=== PATIENT | male | born 1955 | race Caucasian/White ===

== ENCOUNTER 2016-08-22 16:48 | Emergency (ER) | payer OTHER ==
[~2016-08-22] VITALS: Ht 177.8 cm; Wt 132.7 kg
[2016-08-22 16:53] VITALS: BP 113/73; PULSE 66; RESP 16; O2SAT 98
--- NOTE | 2016-08-22 17:22 | ED.REPORT ---
HPI-Chest Pain 40 and Over Date of Service Aug 22, 2016 ED Provider: Doc,Ed MD The patient is a 61 year old male with history hypertension presents to the emergency department complaining of epigastric pain. His pain is exacerbated with eating and intermittently radiates up into his chest. Nursing Notes Stated Complaint: CHEST PAIN Chief Complaint: Chest Pain Nursing Notes Reviewed: Yes Allergies: Coded Allergies: Penicillins (Verified Allergy, Unknown, 08/22/16) General Time Seen by MD: 17:21 Chief Complaint Chest pain Hx Obtained From: Patient Arrived By: Walk-in Sudden in Onset?: No Location: : Epigastric: Substernal Quality: Burning, Painful Severity: Current: Moderate Severity: Maximum: Moderate Exacerbated by: Eating Recent Healthcare: No recent doctor visit, No recent hospitalization Past Medical History Past Medical History Hypertension Family History Noncontributory Smoking History Unknown if Ever Smoker Social History Other Social History: Local resident Ambulatory Status Independent Review of Systems Cardiovascular: Reports: Chest pain GI: Reports: Abdominal pain Complete sys rev & neg: except as marked. Physical Exam Initial Vital Signs Vital Signs (First) Date Time Temp Pulse Resp B/P Pulse Ox O2 Delivery O2 Flow Rate FiO2 08/22/16 16:53 36.1 66 16 113/73 98 Room Air Initial VS: Reviewed Interpretation & Diagnostics Lab Results Interpretation Result Diagram: 08/22/16 1718 Test 08/22/16 17:18 White Blood Count 8.5th/mm3 (3.8-10.1) Red Blood Count 4.61mil/mm3 (4.40-5.80) Hemoglobin 13.7g/dL (13.8-17.2) Hematocrit 41.4% (41.0-50.0) Mean Corpuscular Volume 89.8fL (81-100) Mean Corpuscular Hemoglobin 29.7pg (27.0-35.0) Mean Corpuscular Hemoglobin Concent 33.1% (32.0-37.0) Red Cell Distribution Width 13.7% (12.3-15.4) Platelet Count 235bil/L (150-400) Neutrophils (%) (Auto) 71.0% (40-74) Lymphocytes (%) (Auto) 16.1% (14-46) Monocytes (%) (Auto) 8.8% (4-12) Eosinophils (%) (Auto) 2.9% (0-5) Basophils (%) (Auto) 0.5% (0-3) ECG Interpretation ECG Interpretation: Normal sinus rhythm with a rate of 62 Time: 17:04 Interpreted by: ED physician Re-Eval/Medical Decision Source of Hx: Old records Counseled Regarding: Diagnosis, Lab results Discharge & Departure Discharge Condition All VS Reviewed: Yes Condition: Stable Referrals: Brad Adams MD (PCP) Scribe Attestation Portions of this note were transcribed by Laxmi Wilde. I, Dr. Gonzalez personally performed the history, physical exam and medical decision-making; I reviewed and confirmed the accuracy of the information in the transcribed note. Signed by: Ileana Goldberg, 08/22/2016 at 1800. copies to: Brad Adams MD, Timothy S DO Aug 22, 2016 17:21 Laxmi Wilde Aug 22, 2016 17:35
[2016-08-22] MEDS ORDERED: LidocaineVisc 2%:Antacid 1:1 10 mL Syringe PO ONE (17:25)
[2016-08-22 17:34] LABS: BASOPHILS % (AUTO) 0.5 % (0-3); EOSINOPHILS % (AUTO) 2.9 % (0-5); MONOCYTES % (AUTO) 8.8 % (4-12); Mean Corpuscular Hemoglobin 29.7 pg (27.0-35.0); Mean Corpuscular Volume 89.8 fL (81-100); Platelet Count 235 bil/L (150-400)
[2016-08-22 18:00] LABS: Lipase 16 U/L (13-60); TROPONIN T < 0.010 ug/L (0.0-0.011)
--- NOTE | 2016-08-22 18:03 | ED.REPORT ---
HPI-Chest Pain 40 and Over Date of Service Aug 22, 2016 ED Provider: Art Gonzalez DO This is a very pleasant 61-year-old male who presents with odynophagia. For the past 2 days whenever he eats something as he feels the past his lower esophagus he develops rather severe intermittent burning pain. The pain then resolves. He was not able eat a sandwich tonight without pain so he came in. Of note he does use a lot of ibuprofen for joint pain. He is not a heavy drinker. He has never had peptic ulcer disease. He has never had reflux esophagitis. No abdominal trauma. He has had absolutely no chest pain. He has had no shortness of breath. No ripping or tearing pain. Nursing Notes Stated Complaint: CHEST PAIN Chief Complaint: Chest Pain Nursing Notes Reviewed: Yes Allergies: Coded Allergies: Penicillins (Verified Allergy, Unknown, 08/22/16) General Time Seen by MD: 18:02 Chief Complaint Other (epigastric pain) Hx Obtained From: Patient Arrived By: Walk-in Sudden in Onset?: Yes Onset Occurred: Yesterday Symptom Duration: Since onset Location: : Epigastric Quality: Burning, Painful Radiation: : Does not radiate Severity: Current: Mild Recent Healthcare: No recent doctor visit, No recent hospitalization Similar Sx Previous: No Risk Factors )( CAD Risk Stratification HypertensionNo Amphetamine, No Cocaine, No Diabetes mellitus, No Family history , No Known CAD, No Smoking Risk factors reviewed )( TAD Risk Stratification No 1st degree relative, No Aortic valve disease, No Coarctation of aorta Risk factors reviewed )( PE Risk Stratification No Coagulation Disorder, No [place], No Immobilization, No Malignancy, No , No , No Previous DVT, No Previous PE, No Surgery Last 60 Days, No Trauma No risk factors Well's Criteria for PE Well's PE Score: 0-2 pts (low risk 3.6%) Past Medical History Past Medical History Hypertension Past Surgical History denies Family History Noncontributory Smoking History Unknown if Ever Smoker Social History Other Social History: Local resident Ambulatory Status Independent Review of Systems Constitutional: Denies: Chills Respiratory: Denies: Dyspnea on exertion, Hemoptysis Cardiovascular: Denies: Chest pain, Dyspnea on exertion GI: Reports: Abdominal pain, Denies: Diarrhea, Nausea, Vomiting Musculoskeletal: Denies: Back pain Skin: Denies Bruising Neurologic: Denies: Bladder dysfunction Complete sys rev & neg: except as marked. Physical Exam Physical Exam Notes: Initial Vital Signs Vital Signs (First) Date Time Temp Pulse Resp B/P Pulse Ox O2 Delivery O2 Flow Rate FiO2 08/22/16 16:53 36.1 66 16 113/73 98 Room Air Initial VS: Reviewed Head / Eyes: Atraumatic, Normocephalic, PERRL ENT: Mucous membranes moist, Conjunctiva normal Neck: Supple, Non-tender Extremities: Vascular intact, Neuro intact, No swelling Skin: Warm, Dry General/Constitutional: Awake, Alert, Cooperative Appearance / Presentation: Positive: Obese Respiratory / Chest: Atraumatic, Breath sounds NL, Breath sounds = bilat Cardiovascular: Heart rate NL, Regular rhythm, Heart sounds NL Abdomen: No guarding, No rebound epigastric tenderness faint abdominal brewery high pitched abdominal sounds Interpretation & Diagnostics Lab Results Interpretation Result Diagram: 08/22/16 1718 08/22/16 1718 Test 08/22/16 17:18 08/22/16 21:15 White Blood Count 8.5th/mm3 (3.8-10.1) Red Blood Count 4.61mil/mm3 (4.40-5.80) Hemoglobin 13.7g/dL (13.8-17.2) Hematocrit 41.4% (41.0-50.0) Mean Corpuscular Volume 89.8fL (81-100) Mean Corpuscular Hemoglobin 29.7pg (27.0-35.0) Mean Corpuscular Hemoglobin Concent 33.1% (32.0-37.0) Red Cell Distribution Width 13.7% (12.3-15.4) Platelet Count 235bil/L (150-400) Neutrophils (%) (Auto) 71.0% (40-74) Lymphocytes (%) (Auto) 16.1% (14-46) Monocytes (%) (Auto) 8.8% (4-12) Eosinophils (%) (Auto) 2.9% (0-5) Basophils (%) (Auto) 0.5% (0-3) Sodium Level 138mEq/L (134-144) Potassium Level 5.2mEq/L (3.5-5.2) Chloride Level 102mEq/L (97-108) Carbon Dioxide Level 22mmol/L (18-29) Blood Urea Nitrogen 25mg/dL (6-24) Creatinine 1.02mg/dL (0.76-1.27) Estimat Glomerular Filtration Rate 79mL/min (>59) Glucose Level 105mg/dL (60-99) Calcium Level 9.8mg/dL (8.5-10.1) Magnesium Level 2.0mg/dL (1.6-2.6) Total Bilirubin 0.4mg/dL (0.0-1.2) Aspartate Amino Transf (AST/SGOT) 18U/L (0-50) Alanine Aminotransferase (ALT/SGPT) 17U/L (0-44) Alkaline Phosphatase 65U/L (25-160) Total Protein 6.8g/dL (6.4-8.4) Albumin 4.1g/dL (3.4-5.0) Lipase 17U/L (13-60) Troponin T 0.010ug/L (0.0-0.011) X-Ray Chest Interpretation Chest Xray Interpretation: IMPRESSION: No acute cardiopulmonary findings. Dictated by: Rosette Frias M.D. on 08/22/2016 at 18:02 Approved by: Rosette Frias M.D. on 08/22/2016 at 18:02 View: Portable Interpretation / Wet Read by: Interpret - Radiologist CT Head Interpretation IMPRESSION: 1. No acute intra-abdominal findings. Normal appendix. 2. Diverticulosis. No acute diverticulitis. Dictated by: Rosette Frias M.D. on 08/22/2016 at 21:54 Approved by: Rosette Frias M.D. on 08/22/2016 at 21:58 Re-Eval/Medical Decision Med Decision/Clinical Course CT scan was reassuring. No abdominal aortic aneurysm. No pancreatic mass. No liver mass. Stomach and esophagus looked normal. We medicated with IV Protonix and this helped significantly. At discharge he was pain-free and was very hungry. Serial troponins were negative. I think MIs highly unlikely. I think he is either esophagitis or gastritis from the ibuprofen. As such and replacement 4 weeks of Protonix. I prescribed hydrocodone for his joint pain swings stop taking the ibuprofen. I will ask him to follow-up with his primary care physician next week and be set up for possible endoscopy. Counseled Regarding: Diagnosis, Lab results, Need for follow-up, When/why to return to ED Discharge & Departure Primary Impression: Epigastric abdominal pain Additional Impression: Gastritis Gastritis type: unspecified gastritis Chronicity: acute Gastritis bleeding : presence of bleeding unspecified Qualified Code: K29.00 - Acute gastritis without bleeding Disposition: Home Discharge Condition All VS Reviewed: Yes Condition: Stable Additional Instructions: Your heart blood tests were normal. The CAT scan was reassuring. There is no acute abnormality seen on the CAT scan. Based on the Motrin use and pain with swallowing food I suspect that you have gastritis or esophagitis. Stop taking the Motrin. Take Protonix daily for 4 weeks. Take 1-2 hydrocodone every 6 hours as needed for the joint pain. Do not drive or drink alcohol or consume acetaminophen while taking the [place]. Do not take any other anti- inflammatories until the stomach is healed. Set up a follow-up with primary care physician for next week. Return if any problems or any worsening symptoms. Talked to primary care physician about having a set up for evaluation by a gastrointestinal specialist. Referrals: Brad Adams MD (PCP) Scribe Attestation Portion of this note were transcribed by Britta Urrutia. I, Dr. Booth, personally performed the history, physical exam, and medical decision-making: I reviewed and confirmed the accuracy for the information in the transcribed note. Signed by: kaiden Serna, 08/22/16 2100 copies to: Brad Adams MD, Todd P DO Aug 22, 2016 18:02 Britta Urrutia Aug 22, 2016 18:44
--- NOTE | 2016-08-22 18:04 | DRSVH ---
PROCEDURE: X-RAY CHEST, TWO VIEWS ([id number]) INDICATIONS: chest pain TECHNIQUE: 2 views of the chest were acquired. COMPARISON: None. FINDINGS: Surgical changes and devices: None. Lungs and pleura: No pleural effusions or pneumothorax. Lungs are clear. Mediastinum: Mediastinal contours are normal. Heart size is normal. Bones and chest wall: No suspicious bony abnormalities. Soft tissues appear unremarkable. IMPRESSION: No acute cardiopulmonary findings. Dictated by: Rosette Frias M.D. on 08/22/2016 at 18:02 Approved by: Rosette Frias M.D. on 08/22/2016 at 18:02
[2016-08-22] MEDS ORDERED: Pantoprazole 4 mg/mL 10 mL Inj IVPUSH ONE (18:30)
[2016-08-22 18:39] VITALS: BP 102/49; PULSE 68; RESP 20; O2SAT 98
[2016-08-22 20:50] VITALS: BP 116/65; PULSE 82; RESP 16; O2SAT 99
--- NOTE | 2016-08-22 22:00 | DRSVH ---
PROCEDURE: CT ABDOMEN AND PELVIS WITH CONTRAST ([id number]) INDICATIONS: EPIGASTRIC PAIN, HYPERTENSIVE, BRUIT TECHNIQUE: After the administration of intravenous contrast, 5 mm thick sections acquired from the diaphragm to the symphysis. 5 mm coronal and sagittal reformats were acquired. For radiation dose reduction, the following was used: automated exposure control, adjustment of mA and/or kV according to patient siz e. COMPARISON: None. FINDINGS: Image quality: Excellent. ABDOMEN: Lung bases: Lung bases are clear. Heart size is normal. Solid organs: Liver and spleen are normal in size and enhancement. Gallbladder is unremarkable. Bi liary system is non dilated. Pancreas enhances normally. No adrenal nodules. Kidneys demonstrate n ormal size and enhancement, without hydronephrosis. There multiple bilateral low-density perirenal cy sts. Peritoneum and bowel: Bowel loops demonstrate normal wall thickness and caliber. There is extensive sigmoid colon diverticulosis. No mucosal thickening or pericolonic fat stranding to suggest acute div erticulitis. The appendix is thin walled and gas filled. No free fluid or air. Nodes and vessels: No retroperitoneal or mesenteric adenopathy by size criteria. Aorta and inferior vena cava are normal in size. Miscellaneous: No ventral hernias. PELVIS: Genitourinary: Bladder wall thickness is normal. Miscellaneous: No inguinal adenopathy. There is a small left fat-containing inguinal hernia. Bones: No suspicious bony lesions. No vertebral body compression fractures. IMPRESSION: 1. No acute intra-abdominal findings. Normal appendix. 2. Diverticulosis. No acute diverticulitis. Dictated by: Rosette Frias M.D. on 08/22/2016 at 21:54 Approved by: Rosette Frias M.D. on 08/22/2016 at 21:58
== END 2016-08-22 23:06 | disposition home or self-care (01) ==
LOC: SED 16:48
DX: K29.00 Acute gastritis without bleeding (principal); R10.13 Epigastric pain; Z88.0 Allergy status to penicillin
CPT/HCPCS: 36415; 71020; 74177; 80053; 83690; 83735; 84484; 85025; 93005; 96374; 99285; Q9967